=== PATIENT | female | born 1965 | race Caucasian/White ===

== ENCOUNTER → 2016-08-14 09:23 | Day surgery (SDC) | payer SELFPAY ==
[~2016-08-14 09:23] MED LIST: Artificial Tear OPHTH.OINT* 3.5 GM ONE; BSS OPTH.SOL* BTL ONE; Bacitracin OINTMENT* 0.5% 0.5 oz TUBE ONE; Bacitracin OPHTH.OINT* 3.5 GM ONE; Buffered Lidocaine 1% SYR 3ML* 3 ML/SYR SYRINGE ONE; Dexamethasone IV* 4 MG/ML 1 ML (4 MG) ONE; Lidocain 1% EPI 1:100,000 * 30 ML MDV ONE; Ondansetron INJ* 2 MG/ML VIAL ONE; Propofol* 10 MG/ML 20 ML BTL IV PUSH ONE; ceFAZolin 2 GM PREMIX (*) 2 GM/50 ML BAG IVPB ONE; fentaNYL* 50 MCG/ML 2 ML VIAL (100 MCG VIAL) ONE
[2016-08-14 13:19] VITALS: BP 118/71
== END | disposition home or self-care (01) ==
LOC: OREAST 09:23
PROVIDERS: ATTEND Plastic Surgery
DX: Z41.1 Encounter for cosmetic surgery (principal); I10 Essential (primary) hypertension; I34.1 Nonrheumatic mitral (valve) prolapse
CPT/HCPCS: 88300; A9270-GY; J0690; J1100; J2405; J2704; J3010